=== PATIENT | male | born 1980 ===

== ENCOUNTER 2018-04-24 09:16 | Emergency (ER) | payer SELFPAY ==
[2018-04-24 09:56] VITALS: BP 143/94; PULSE 92; RESP 16; TEMP 96.3; O2SAT 99
[2018-04-24 11:02] LABS: HEMATOCRIT 47 % (39-53); HEMOGLOBIN 15.9 gm/dl (13.5-17.7); MEAN CORPUSCULAR HGB CONC 34.2 gm/dl (32.0-36.0); MEAN CORPUSCULAR VOLUME 91 fL (80-100)
[2018-04-24] MEDS ORDERED: AZITHROMYCIN 250 MG TAB PO ONE (11:17)
[2018-04-24] MEDS ORDERED: CEFTRIAXONE 1 GM PDS IM ONE (11:17)
[2018-04-24] MEDS ORDERED: AZITHROMYCIN 250 MG TAB ONE (11:20)
[2018-04-24] MEDS ORDERED: CEFTRIAXONE 1 GM PDS ONE (11:22)
[2018-04-24] MEDS ORDERED: LIDOCAINE HCL 1% MPF 30 SOL ONE (11:22)
[2018-04-24 11:23] LABS: BAND NEUTROPHILS % (MANUAL) 7 %; BASOPHILS % (MANUAL) 0 % (0-3); EOSINOPHILS % (MANUAL) 0 % (0-9); LYMPHOCYTES % (MANUAL) 27 % (10-50); MONOCYTES % (MANUAL) 0 % (0-12); NEUTROPHILS % (MANUAL) 66 % (37-80); NORMAL RBCS PRESENT
== END 2018-04-24 11:50 | disposition home or self-care (01) | DRG 728 ==
LOC: ED 09:16
DX: N45.2 Orchitis (principal)
CPT/HCPCS: 36415; 85007; 85027; 96372; 99283; J0696; A9270-GY; J2001

== ENCOUNTER 2018-07-24 16:00 | Emergency (ER) | payer SELFPAY ==
[2018-07-24 16:23] VITALS: BP 147/113; PULSE 100; RESP 18; TEMP 96.8; O2SAT 100
[2018-07-24] MEDS ORDERED: AZITHROMYCIN 250 MG TAB PO ONE (16:40)
[2018-07-24] MEDS ORDERED: CEFTRIAXONE 1 GM PDS IM ONE (16:43)
[2018-07-24] MEDS ORDERED: CEFTRIAXONE 1 GM PDS 1 GM in SODIUM CHLORIDE 0.9% 50 ML 50 ML IV SCH (16:45)
[2018-07-24] MEDS ORDERED: CEFTRIAXONE 1 GM PDS ONE (16:47)
[2018-07-24] MEDS ORDERED: LIDOCAINE HCL 1% MPF 30 SOL ONE (16:47)
[2018-07-24] MEDS ORDERED: AZITHROMYCIN 250 MG TAB ONE (16:47)
== END 2018-07-24 17:07 | disposition home or self-care (01) | DRG 696 ==
LOC: ED 16:00
DX: R36.9 Urethral discharge, unspecified (principal)
CPT/HCPCS: 96372; 99282; J0696; A9270-GY; J2001

== ENCOUNTER 2018-08-06 03:10 | Emergency (ER) | payer SELFPAY ==
[2018-08-06 03:23] VITALS: TEMP 95.5
[2018-08-06 06:03] VITALS: BP 104/60; RESP 16
[2018-08-06 06:48] VITALS: PULSE 83; O2SAT 95
== END 2018-08-06 07:17 | DRG 897 ==
LOC: ED 03:10
DX: F10.920 Alcohol use, unspecified with intoxication, uncomplicated (principal)
CPT/HCPCS: 99283